=== PATIENT | male | born 1950 | race Two or more races ===

== ENCOUNTER 2022-12-21 07:09 | Inpatient (IN) | payer MEDICARE, MEDICAID ==
[2022-12-21] VITALS (7 sets, daily range): BP systolic 114–142; BP diastolic 50–65
[~2022-12-21] VITALS: Ht 185.4 cm; Wt 69.4 kg
[~2022-12-21 07:09] MED LIST: [UNRECOGNIZED DRUG - OTHER]; amlodipine; asa; flomax; lotensin; reglan
[2022-12-21 07:50] LABS: BG BASE EXCESS -2.1 mmol/L (-2.0-2.0); BG CARBOXYHEMOGLOBIN 0.6 % (0.5-1.5); BG DEOXYHEMOGLOBIN 7.2 % (0.0-5.0); BG FRACTION INSPIRED OXYGEN 36; BG HCO3 ACT 20.8 mmol/L (22.0-26.0); BG METHEMOGLOBIN 0.2 % (0.0-1.5); BG OXYGEN SATURATION 92.7 % (92.0-98.5); BG PH 7.473 (7.350-7.450); BG PO2 63.2 mmHg (75.0-100.0); BG SAMPLE SITE RIGHT RADIAL; BG TOTAL HEMOGLOBIN 9.9 g/dL (12.0-18.0); BG VENT MODE NASAL CANNULA
[2022-12-21 07:59] LABS: CHLORIDE 100 mEq/L (98-107)
[2022-12-21 08:00] LABS: HEMATOCRIT. 29.1 % (42.0-52.0); HEMOGLOBIN. 9.6 g/dL (14.0-18.0); MEAN CORPUSCULAR HEMOGLOBIN 29.8 pg (28.0-32.0); MEAN CORPUSCULAR VOLUME 90.4 fL (80.0-94.0); MEAN PLATELET VOLUME 9.1 fl (7.4-10.4); PLATELET 82 x1000/uL (130-400); RED BLOOD CELL COUNT 3.22 mill/uL (4.7-6.1)
[2022-12-21] MEDS ORDERED: ENALAPRIL 2.5MG/2ML VIAL 2ML IV ONE (09:00)
[2022-12-21] MEDS ORDERED: FUROSEMIDE 40MG/4ML VIAL IVP ONE (09:00)
[2022-12-21 09:26] LABS: PLATELET ESTIMATE DECREASED
[2022-12-21] MEDS ORDERED: ENALAPRIL 1.25MG/ML VIAL 1ML IV NR (09:30)
[2022-12-21] MEDS ORDERED: FUROSEMIDE 40MG/4ML VIAL IVP NR (09:45)
[2022-12-21] MEDS ORDERED: ONDANSETRON HCL 4MG/2ML INJ IV PRN (11:30)
[2022-12-21] MEDS ORDERED: ENOXAPARIN 40MG/0.4ML SYR SUBCUT SCH (11:30)
[2022-12-21] MEDS ORDERED: IPRATROPIUM/ALBUTEROL 0.5-3(2.5)MG/3ML NEB NEB PRN (11:30)
[2022-12-21] MEDS ORDERED: CLONIDINE 0.1MG TABLET PO PRN (11:30)
[2022-12-21] MEDS ORDERED: TRAMADOL 50MG TABLET PO PRN (11:30)
[2022-12-21] MEDS ORDERED: DOCUSATE SODIUM 100MG CAPSULE PO PRN (11:30)
[2022-12-21] MEDS ORDERED: IPRATROPIUM BROMIDE (0.02%) 0.5MG/2.5ML NEB HHN PRN (11:45)
[2022-12-21] MEDS ORDERED: NALOXONE HCL 0.4MG/ML VIAL IV PRN (11:45)
[2022-12-21] MEDS ORDERED: ALBUTEROL (0.083%) 2.5MG/3ML NEB HHN PRN (11:45)
[2022-12-21] MEDS: AMLODIPINE 10MG TABLET PO SCH (13:49)
[2022-12-21] MEDS: GUAIFENESIN 600MG ER TABLET PO SCH ×2 (13:49→21:41)
[2022-12-21] MEDS: FAMOTIDINE 20MG TABLET PO SCH (13:49)
[2022-12-21] MEDS: DEXAMETHASONE 6MG TABLET PO SCH (13:50)
[2022-12-21] MEDS: ZINC SULFATE 220 MG ( 50 ) CAPSULE PO SCH (13:51)
[2022-12-21] MEDS: ASPIRIN 325MG EC TABLET PO SCH (13:52)
[2022-12-21] MEDS: ASCORBIC ACID 500 MG TABLET PO SCH ×2 (13:52→21:41)
[2022-12-21] MEDS: ACETAMINOPHEN 325MG TABLET PO PRN (13:52)
[2022-12-21] MEDS: ENOXAPARIN 30MG/0.3ML SYR SUBCUT SCH (13:58)
[2022-12-21] MEDS: CEFTRIAXONE 1,000 MG in DEXTROSE 5% WATER 50 ML IV SCH (15:17)
[2022-12-21 15:18] LABS: FOLIC ACID (FOLATE) SERUM >20 ng/mL ng/mL (>5.38); HEPATITIS B SURFACE ANTIGEN NEGATIVE; VITAMIN B12 SERUM 332 pg/mL (211-911)
[2022-12-21] MEDS: AZITHROMYCIN 500 MG in DEXT 5% WATER 250 ML IV SCH (15:18)
[2022-12-21] MEDS ORDERED: DEXTROSE 50% WATER 50ML SYRINGE IV PRN (16:00)
[2022-12-21] MEDS: BLOOD SUGAR DIAGNOSTIC STRIP TEST SCH ×2 (17:27→21:32)
[2022-12-21] MEDS: INSULIN LISPRO 100 UNITS/ML SUBCUT SCH ×2 (17:57→21:42)
[2022-12-21 19:50] LABS: CREATINE KINASE MB FRACTION 1.5 ng/mL (0.5-3.6)
[2022-12-21 19:55] LABS: T4 FREE 1.01 ng/dL (0.76-1.46)
[2022-12-22] VITALS (10 sets, daily range): BP systolic 106–146; BP diastolic 51–62
[2022-12-22] MEDS: ALBUTEROL 6.7GM HFA INHALER ORI SCH ×4 (00:28→17:54)
[2022-12-22 03:08] LABS: CREATINE KINASE MB FRACTION 1.2 ng/mL (0.5-3.6)
[2022-12-22] MEDS: BLOOD SUGAR DIAGNOSTIC STRIP TEST SCH ×4 (05:58→20:45)
[2022-12-22] MEDS: INSULIN LISPRO 100 UNITS/ML SUBCUT SCH ×4 (05:58→20:46)
[2022-12-22 06:54] LABS: HEMATOCRIT. 26.4 % (42.0-52.0); HEMOGLOBIN. 8.8 g/dL (14.0-18.0); MEAN CORPUSCULAR HEMOGLOBIN 30.1 pg (28.0-32.0); MEAN CORPUSCULAR VOLUME 90.7 fL (80.0-94.0); PLATELET 77 x1000/uL (130-400); RED BLOOD CELL COUNT 2.92 mill/uL (4.7-6.1); RED CELL DISTRIBUTION WIDTH 16.3 % (11.6-14.6)
[2022-12-22 07:24] LABS: CHLORIDE 102 mEq/L (98-107)
[2022-12-22 08:05] LABS: PHOSPHORUS 5.8 mg/dL (2.5-4.9)
[2022-12-22] MEDS: ZINC SULFATE 220 MG ( 50 ) CAPSULE PO SCH (08:49)
[2022-12-22] MEDS: DEXAMETHASONE 6MG TABLET PO SCH (08:49)
[2022-12-22] MEDS: FAMOTIDINE 20MG TABLET PO SCH (08:49)
[2022-12-22] MEDS: ASPIRIN 325MG EC TABLET PO SCH (08:49)
[2022-12-22] MEDS: GUAIFENESIN 600MG ER TABLET PO SCH ×2 (08:50→20:44)
[2022-12-22] MEDS: ASCORBIC ACID 500 MG TABLET PO SCH ×2 (08:50→20:46)
[2022-12-22] MEDS: AMLODIPINE 10MG TABLET PO SCH (08:52)
[2022-12-22] MEDS ORDERED: CEFTRIAXONE 1 G PREMIX 50 ML IV SCH (09:00)
[2022-12-22] MEDS: CEFTRIAXONE 1,000 MG in DEXTROSE 5% WATER 50 ML IV SCH (12:02)
[2022-12-22] MEDS: ENOXAPARIN 30MG/0.3ML SYR SUBCUT SCH (12:02)
[2022-12-22 13:05] LABS: PLATELET ESTIMATE DECREASED
[2022-12-22] MEDS: AZITHROMYCIN 500 MG in DEXT 5% WATER 250 ML IV SCH (13:11)
[2022-12-22 16:50] LABS: *AMPHETAMINES SCREEN URINE NEGATIVE (NEGATIVE); *BARBITURATES SCREEN URINE NEGATIVE (NEGATIVE); *BENZODIAZEPINES SCREEN URINE NEGATIVE (NEGATIVE); *COCAINE SCREEN URINE NEGATIVE (NEGATIVE); CANNABINOID URINE SCREEN NEGATIVE (NEGATIVE); METHADONE URINE SCREEN NEGATIVE (NEGATIVE); OPIATES URINE SCREEN NEGATIVE (NEGATIVE); PHENCYCLIDINE URINE SCREEN NEGATIVE (NEGATIVE)
[2022-12-22] MEDS: EPOETIN ALFA-EPBX 4,000 UNIT/ML VIAL SUBCUT SCH (20:45)
[2022-12-23] VITALS (15 sets, daily range): BP systolic 118–155; BP diastolic 50–62
[2022-12-23] MEDS: ZOLPIDEM TARTRATE 5MG TABLET PO PRN ×2 (01:55→21:12)
[2022-12-23] MEDS: ACETAMINOPHEN 325MG TABLET PO PRN (03:53)
[2022-12-23] MEDS: BLOOD SUGAR DIAGNOSTIC STRIP TEST SCH ×4 (05:44→21:02)
[2022-12-23] MEDS: INSULIN LISPRO 100 UNITS/ML SUBCUT SCH ×4 (06:45→21:13)
[2022-12-23] MEDS: DEXAMETHASONE 6MG TABLET PO SCH (09:31)
[2022-12-23] MEDS: FAMOTIDINE 20MG TABLET PO SCH (09:32)
[2022-12-23] MEDS: ZINC SULFATE 220 MG ( 50 ) CAPSULE PO SCH (09:32)
[2022-12-23] MEDS: ASPIRIN 325MG EC TABLET PO SCH (09:33)
[2022-12-23] MEDS: GUAIFENESIN 600MG ER TABLET PO SCH ×2 (09:33→21:12)
[2022-12-23] MEDS: AMLODIPINE 10MG TABLET PO SCH (09:34)
[2022-12-23] MEDS: ASCORBIC ACID 500 MG TABLET PO SCH ×2 (09:36→21:12)
[2022-12-23] MEDS: ENOXAPARIN 30MG/0.3ML SYR SUBCUT SCH (12:00)
[2022-12-23] MEDS: CEFTRIAXONE 1,000 MG in DEXTROSE 5% WATER 50 ML IV SCH (14:37)
[2022-12-23] MEDS: AZITHROMYCIN 500 MG in DEXT 5% WATER 250 ML IV SCH (15:55)
[2022-12-23] MEDS ORDERED: THROAT LOZENGES-BENZOCAINE/MENTH/CETYLPYRD CL LOZENGES MM PRN (17:45)
[2022-12-23 18:10] LABS: BG BASE EXCESS -0.9 mmol/L (-2.0-2.0); BG CARBOXYHEMOGLOBIN 0.4 % (0.5-1.5); BG DEOXYHEMOGLOBIN 13.4 % (0.0-5.0); BG HCO3 ACT 22.2 mmol/L (22.0-26.0); BG METHEMOGLOBIN 0.3 % (0.0-1.5); BG OXYGEN SATURATION 86.5 % (92.0-98.5); BG OXYHEMOGLOBIN 85.9 % (94.0-97.0); BG PH 7.473 (7.350-7.450); BG PO2 49.6 mmHg (75.0-100.0); BG SAMPLE SITE RIGHT RADIAL; BG TOTAL HEMOGLOBIN 9.9 g/dL (12.0-18.0); BG VENT MODE ROOM AIR
[2022-12-24] VITALS (7 sets, daily range): BP systolic 123–145; BP diastolic 55–80
[2022-12-24] MEDS: ALBUTEROL 6.7GM HFA INHALER ORI SCH ×5 (00:33→23:38)
[2022-12-24] MEDS: GUAIFENESIN 200MG/10ML SUGAR FREE UDC PO PRN (00:47)
[2022-12-24] MEDS: ACETAMINOPHEN 325MG TABLET PO PRN (00:47)
[2022-12-24] MEDS: BLOOD SUGAR DIAGNOSTIC STRIP TEST SCH ×4 (06:11→20:42)
[2022-12-24] MEDS: INSULIN LISPRO 100 UNITS/ML SUBCUT SCH ×4 (06:12→20:55)
[2022-12-24 08:42] LABS: HEMATOCRIT 28.6 % (42.0-52.0); HEMOGLOBIN 9.4 g/dL (14.0-18.0); MEAN CORPUSCULAR HEMOGLOBIN 29.9 pg (28.0-32.0); MEAN CORPUSCULAR VOLUME 91.2 fL (80.0-94.0); PLATELET 62 x1000/uL (130-400); RED BLOOD CELL COUNT 3.13 mill/uL (4.7-6.1); RED CELL DISTRIBUTION WIDTH 16.7 % (11.6-14.6)
[2022-12-24 08:55] LABS: INR 1.1; PROTHROMBIN TIME 11.4 sec (9.6-11.0)
[2022-12-24] MEDS: FAMOTIDINE 20MG TABLET PO SCH (09:02)
[2022-12-24] MEDS: AMLODIPINE 10MG TABLET PO SCH (09:02)
[2022-12-24] MEDS: ASCORBIC ACID 500 MG TABLET PO SCH ×2 (09:02→20:55)
[2022-12-24] MEDS: ZINC SULFATE 220 MG ( 50 ) CAPSULE PO SCH (09:02)
[2022-12-24] MEDS: ASPIRIN 81MG EC TABLET PO SCH (09:02)
[2022-12-24] MEDS: DEXAMETHASONE 6MG TABLET PO SCH (09:02)
[2022-12-24] MEDS: GUAIFENESIN 600MG ER TABLET PO SCH ×2 (09:03→20:56)
[2022-12-24] MEDS: ENOXAPARIN 30MG/0.3ML SYR SUBCUT SCH (12:00)
[2022-12-24] MEDS: CEFTRIAXONE 1,000 MG in DEXTROSE 5% WATER 50 ML IV SCH (12:17)
[2022-12-24] MEDS: AZITHROMYCIN 500 MG in DEXT 5% WATER 250 ML IV SCH (15:00)
[2022-12-24] MEDS: ZOLPIDEM TARTRATE 5MG TABLET PO PRN (20:55)
[2022-12-24] MEDS: EPOETIN ALFA-EPBX 4,000 UNIT/ML VIAL SUBCUT SCH (20:56)
[2022-12-25] VITALS: BP 140/60
[2022-12-25 04:00] VITALS: BP 150/71
[2022-12-25] MEDS: BLOOD SUGAR DIAGNOSTIC STRIP TEST SCH ×4 (06:24→20:38)
[2022-12-25] MEDS: INSULIN LISPRO 100 UNITS/ML SUBCUT SCH ×4 (06:25→20:38)
[2022-12-25] MEDS: ALBUTEROL 6.7GM HFA INHALER ORI SCH (06:30)
[2022-12-25] MEDS: ACETAMINOPHEN 325MG TABLET PO PRN (06:31)
[2022-12-25 08:00] VITALS: BP 154/66
[2022-12-25] MEDS: ASPIRIN 81MG EC TABLET PO SCH (09:20)
[2022-12-25] MEDS: ASCORBIC ACID 500 MG TABLET PO SCH ×2 (09:20→20:37)
[2022-12-25] MEDS: ZINC SULFATE 220 MG ( 50 ) CAPSULE PO SCH (09:20)
[2022-12-25] MEDS: DEXAMETHASONE 6MG TABLET PO SCH (09:20)
[2022-12-25] MEDS: GUAIFENESIN 600MG ER TABLET PO SCH ×2 (09:20→20:37)
[2022-12-25] MEDS: AMLODIPINE 10MG TABLET PO SCH (09:21)
[2022-12-25] MEDS: FAMOTIDINE 20MG TABLET PO SCH (09:21)
[2022-12-25 12:00] VITALS: BP 142/58
[2022-12-25] MEDS: ENOXAPARIN 30MG/0.3ML SYR SUBCUT SCH (12:00)
[2022-12-25] MEDS: CEFTRIAXONE 1,000 MG in DEXTROSE 5% WATER 50 ML IV SCH (12:06)
[2022-12-25] MEDS: AZITHROMYCIN 500 MG in DEXT 5% WATER 250 ML IV SCH (13:19)
[2022-12-25 16:00] VITALS: BP 102/41
[2022-12-25 20:00] VITALS: BP 144/53
[2022-12-25] MEDS: MAGNESIUM/ALUMINUM HYDROXIDE/SIMETHICONE 30ML UDC PO PRN (20:37)
[2022-12-25] MEDS: ZOLPIDEM TARTRATE 5MG TABLET PO PRN (22:45)
[2022-12-26] VITALS (11 sets, daily range): BP systolic 109–153; BP diastolic 52–90
[2022-12-26 00:22] LABS: HEPATITIS B SURFACE ANTIGEN NEGATIVE
[2022-12-26] MEDS: ALBUTEROL 6.7GM HFA INHALER ORI SCH (00:32)
[2022-12-26] MEDS: BLOOD SUGAR DIAGNOSTIC STRIP TEST SCH ×4 (06:18→21:00)
[2022-12-26] MEDS: INSULIN LISPRO 100 UNITS/ML SUBCUT SCH ×4 (06:19→22:29)
[2022-12-26] MEDS: ASCORBIC ACID 500 MG TABLET PO SCH ×2 (09:22→22:27)
[2022-12-26] MEDS: ZINC SULFATE 220 MG ( 50 ) CAPSULE PO SCH (09:22)
[2022-12-26] MEDS: FAMOTIDINE 20MG TABLET PO SCH (09:22)
[2022-12-26] MEDS: ASPIRIN 81MG EC TABLET PO SCH (09:22)
[2022-12-26] MEDS: GUAIFENESIN 600MG ER TABLET PO SCH ×2 (09:22→22:27)
[2022-12-26] MEDS: DEXAMETHASONE 6MG TABLET PO SCH (09:23)
[2022-12-26] MEDS: AMLODIPINE 10MG TABLET PO SCH (09:23)
[2022-12-26] MEDS: METOPROLOL TARTRATE 25MG TABLET PO SCH ×2 (14:06→22:27)
[2022-12-26] MEDS: CEFTRIAXONE 1,000 MG in DEXTROSE 5% WATER 50 ML IV SCH (14:06)
[2022-12-26] MEDS: ENOXAPARIN 30MG/0.3ML SYR SUBCUT SCH (14:07)
[2022-12-27] VITALS: BP 150/62
[2022-12-27 04:00] VITALS: BP 158/70
[2022-12-27] MEDS: BLOOD SUGAR DIAGNOSTIC STRIP TEST SCH ×4 (06:46→20:57)
[2022-12-27] MEDS: INSULIN LISPRO 100 UNITS/ML SUBCUT SCH ×4 (06:46→21:20)
[2022-12-27 08:00] VITALS: BP 142/54
[2022-12-27] MEDS: ZINC SULFATE 220 MG ( 50 ) CAPSULE PO SCH (09:30)
[2022-12-27] MEDS: GUAIFENESIN 600MG ER TABLET PO SCH ×2 (09:30→21:21)
[2022-12-27] MEDS: ASPIRIN 81MG EC TABLET PO SCH (09:31)
[2022-12-27] MEDS: FAMOTIDINE 20MG TABLET PO SCH (09:31)
[2022-12-27] MEDS: AMLODIPINE 10MG TABLET PO SCH (09:31)
[2022-12-27] MEDS: METOPROLOL TARTRATE 25MG TABLET PO SCH ×2 (09:31→20:56)
[2022-12-27] MEDS: ASCORBIC ACID 500 MG TABLET PO SCH ×2 (09:31→21:00)
[2022-12-27] MEDS: DEXAMETHASONE 6MG TABLET PO SCH (09:31)
[2022-12-27 12:00] VITALS: BP 157/61
[2022-12-27] MEDS: ENOXAPARIN 30MG/0.3ML SYR SUBCUT SCH (12:19)
[2022-12-27] MEDS: FUROSEMIDE 40MG/4ML VIAL IVP SCH (13:57)
[2022-12-27 16:00] VITALS: BP 139/60
[2022-12-27 20:00] VITALS: BP 135/46
[2022-12-27] MEDS: EPOETIN ALFA-EPBX 4,000 UNIT/ML VIAL SUBCUT SCH (21:19)
[2022-12-27] MEDS: ZOLPIDEM TARTRATE 5MG TABLET PO PRN (21:21)
[2022-12-28] VITALS (14 sets, daily range): BP systolic 115–158; BP diastolic 55–89
[2022-12-28] MEDS: BLOOD SUGAR DIAGNOSTIC STRIP TEST SCH ×4 (05:41→21:00)
[2022-12-28] MEDS: INSULIN LISPRO 100 UNITS/ML SUBCUT SCH ×4 (06:15→22:00)
[2022-12-28 06:59] LABS: HEMATOCRIT. 30.6 % (42.0-52.0); HEMOGLOBIN. 9.8 g/dL (14.0-18.0); MEAN CORPUSCULAR HEMOGLOBIN 28.9 pg (28.0-32.0); MEAN PLATELET VOLUME 10.1 fl (7.4-10.4); PLATELET 71 x1000/uL (130-400); RED CELL DISTRIBUTION WIDTH 16.7 % (11.6-14.6)
[2022-12-28] MEDS: ASCORBIC ACID 500 MG TABLET PO SCH ×2 (09:37→21:59)
[2022-12-28] MEDS: ZINC SULFATE 220 MG ( 50 ) CAPSULE PO SCH (09:37)
[2022-12-28] MEDS: GUAIFENESIN 600MG ER TABLET PO SCH ×2 (09:37→21:59)
[2022-12-28] MEDS: ASPIRIN 81MG EC TABLET PO SCH (09:38)
[2022-12-28] MEDS: METOPROLOL TARTRATE 25MG TABLET PO SCH ×2 (09:38→21:59)
[2022-12-28] MEDS: DEXAMETHASONE 6MG TABLET PO SCH (09:38)
[2022-12-28] MEDS: FUROSEMIDE 40MG/4ML VIAL IVP SCH (09:38)
[2022-12-28] MEDS: AMLODIPINE 10MG TABLET PO SCH (09:38)
[2022-12-28] MEDS: FAMOTIDINE 20MG TABLET PO SCH (09:52)
[2022-12-28 11:01] LABS: PLATELET ESTIMATE DECREASED
[2022-12-28] MEDS: ENOXAPARIN 30MG/0.3ML SYR SUBCUT SCH (12:00)
[2022-12-28] MEDS: CYANOCOBALAMIN 1000MCG/ML VIAL IM SCH (15:59)
[2022-12-28] MEDS: METHYLPREDNISOLONE SOD SUCC 125 MG/2 ML VIAL IV SCH ×2 (15:59→22:01)
[2022-12-28] MEDS ORDERED: ALBUTEROL 6.7GM HFA INHALER ORI PRN (16:15)
[2022-12-29] VITALS: BP 126/49
[2022-12-29 04:00] VITALS: BP 132/60
[2022-12-29 06:27] LABS: HEPATITIS B SURFACE ANTIGEN NEGATIVE
[2022-12-29] MEDS: BLOOD SUGAR DIAGNOSTIC STRIP TEST SCH ×4 (06:34→21:49)
[2022-12-29] MEDS: INSULIN LISPRO 100 UNITS/ML SUBCUT SCH ×4 (06:34→21:49)
[2022-12-29] MEDS: METHYLPREDNISOLONE SOD SUCC 125 MG/2 ML VIAL IV SCH ×3 (06:35→21:48)
[2022-12-29 08:00] VITALS: BP 119/53
[2022-12-29] MEDS: AMLODIPINE 10MG TABLET PO SCH (09:00)
[2022-12-29] MEDS: METOPROLOL TARTRATE 25MG TABLET PO SCH ×3 (09:00→21:48)
[2022-12-29] MEDS: ZINC SULFATE 220 MG ( 50 ) CAPSULE PO SCH (09:26)
[2022-12-29] MEDS: FUROSEMIDE 40MG/4ML VIAL IVP SCH (09:26)
[2022-12-29] MEDS: ASCORBIC ACID 500 MG TABLET PO SCH ×2 (09:26→21:49)
[2022-12-29] MEDS: GUAIFENESIN 600MG ER TABLET PO SCH ×2 (09:26→21:48)
[2022-12-29] MEDS: FAMOTIDINE 20MG TABLET PO SCH (09:26)
[2022-12-29] MEDS: ASPIRIN 81MG EC TABLET PO SCH (09:27)
[2022-12-29] MEDS: CYANOCOBALAMIN 1000MCG/ML VIAL IM SCH (09:27)
[2022-12-29 12:00] VITALS: BP 126/56
[2022-12-29] MEDS: ENOXAPARIN 30MG/0.3ML SYR SUBCUT SCH (13:14)
[2022-12-29 16:00] VITALS: BP 133/53
[2022-12-29 20:00] VITALS: BP 139/43
[2022-12-29] MEDS: ZOLPIDEM TARTRATE 5MG TABLET PO PRN (23:30)
[2022-12-30] VITALS: BP 152/53
[2022-12-30 04:00] VITALS: BP 133/53
[2022-12-30] MEDS: METHYLPREDNISOLONE SOD SUCC 125 MG/2 ML VIAL IV SCH ×3 (06:50→21:36)
[2022-12-30] MEDS: BLOOD SUGAR DIAGNOSTIC STRIP TEST SCH ×4 (06:50→21:24)
[2022-12-30 06:51] LABS: HEMATOCRIT. 29.9 % (42.0-52.0); HEMOGLOBIN. 9.7 g/dL (14.0-18.0); MEAN CORPUSCULAR HEMOGLOBIN 29.2 pg (28.0-32.0); MEAN CORPUSCULAR VOLUME 90.1 fL (80.0-94.0); MEAN PLATELET VOLUME 10.6 fl (7.4-10.4); PLATELET 91 x1000/uL (130-400); RED BLOOD CELL COUNT 3.32 mill/uL (4.7-6.1); RED CELL DISTRIBUTION WIDTH 16.1 % (11.6-14.6)
[2022-12-30] MEDS: INSULIN LISPRO 100 UNITS/ML SUBCUT SCH ×4 (06:51→21:48)
[2022-12-30 08:00] VITALS: BP 117/54
[2022-12-30 09:57] LABS: PLATELET ESTIMATE DECREASED
[2022-12-30] MEDS: FAMOTIDINE 20MG TABLET PO SCH (10:16)
[2022-12-30] MEDS: FUROSEMIDE 40MG/4ML VIAL IVP SCH (10:16)
[2022-12-30] MEDS: CYANOCOBALAMIN 1000MCG/ML VIAL IM SCH (10:16)
[2022-12-30] MEDS: AMLODIPINE 10MG TABLET PO SCH (10:17)
[2022-12-30] MEDS: ASCORBIC ACID 500 MG TABLET PO SCH ×2 (10:17→21:36)
[2022-12-30] MEDS: ZINC SULFATE 220 MG ( 50 ) CAPSULE PO SCH (10:17)
[2022-12-30] MEDS: GUAIFENESIN 600MG ER TABLET PO SCH ×2 (10:17→21:36)
[2022-12-30] MEDS: ASPIRIN 81MG EC TABLET PO SCH (10:17)
[2022-12-30] MEDS: METOPROLOL TARTRATE 25MG TABLET PO SCH ×2 (10:19→21:36)
[2022-12-30 12:00] VITALS: BP 131/48
[2022-12-30] MEDS: ENOXAPARIN 30MG/0.3ML SYR SUBCUT SCH (12:00)
[2022-12-30 12:32] LABS: BG BASE EXCESS -7.2 mmol/L (-2.0-2.0); BG CARBOXYHEMOGLOBIN 0.3 % (0.5-1.5); BG DEOXYHEMOGLOBIN 1.6 % (0.0-5.0); BG HCO3 ACT 17.9 mmol/L (22.0-26.0); BG METHEMOGLOBIN 0.2 % (0.0-1.5); BG OXYGEN SATURATION 98.4 % (92.0-98.5); BG OXYHEMOGLOBIN 97.9 % (94.0-97.0); BG PCO2 34.3 mmHg (35.0-45.0); BG PH 7.335 (7.350-7.450); BG PO2 158.8 mmHg (75.0-100.0); BG SAMPLE SITE RIGHT RADIAL; BG TOTAL HEMOGLOBIN 10.5 g/dL (12.0-18.0); BG VENT MODE MASK - NRB
[2022-12-30 16:00] VITALS: BP 134/44
[2022-12-30 20:00] VITALS: BP 122/61
[2022-12-31] VITALS (15 sets, daily range): BP systolic 114–147; BP diastolic 46–66
[2022-12-31] MEDS: ZOLPIDEM TARTRATE 5MG TABLET PO PRN (00:20)
[2022-12-31] MEDS: BLOOD SUGAR DIAGNOSTIC STRIP TEST SCH ×4 (06:01→21:00)
[2022-12-31] MEDS: METHYLPREDNISOLONE SOD SUCC 125 MG/2 ML VIAL IV SCH ×3 (06:08→22:31)
[2022-12-31] MEDS: INSULIN LISPRO 100 UNITS/ML SUBCUT SCH ×4 (06:09→22:30)
[2022-12-31] MEDS: FAMOTIDINE 20MG TABLET PO SCH (10:04)
[2022-12-31] MEDS: FUROSEMIDE 40MG/4ML VIAL IVP SCH (10:04)
[2022-12-31] MEDS: ZINC SULFATE 220 MG ( 50 ) CAPSULE PO SCH (10:04)
[2022-12-31] MEDS: ASCORBIC ACID 500 MG TABLET PO SCH ×2 (10:05→22:31)
[2022-12-31] MEDS: METOPROLOL TARTRATE 25MG TABLET PO SCH ×2 (10:05→22:32)
[2022-12-31] MEDS: GUAIFENESIN 600MG ER TABLET PO SCH ×2 (10:05→22:32)
[2022-12-31] MEDS: AMLODIPINE 10MG TABLET PO SCH (10:05)
[2022-12-31] MEDS: ASPIRIN 81MG EC TABLET PO SCH (10:05)
[2022-12-31] MEDS: CYANOCOBALAMIN 1000MCG/ML VIAL IM SCH (10:05)
[2022-12-31] MEDS: ENOXAPARIN 30MG/0.3ML SYR SUBCUT SCH (13:50)
[2022-12-31] MEDS: ACETAMINOPHEN 325MG TABLET PO PRN ×3 (15:08→22:33)
[2022-12-31] MEDS ORDERED: LEVOFLOXACIN 500MG PREMIX 100 ML IV NR (18:00)
[2023-01-01] VITALS: BP 117/51
[2023-01-01] MEDS: ZOLPIDEM TARTRATE 5MG TABLET PO PRN ×2 (00:10→21:49)
[2023-01-01 04:00] VITALS: BP 121/57
[2023-01-01 06:05] LABS: HEMATOCRIT. 29.5 % (42.0-52.0); HEMOGLOBIN. 9.6 g/dL (14.0-18.0); MEAN CORPUSCULAR HEMOGLOBIN 29.3 pg (28.0-32.0); MEAN CORPUSCULAR VOLUME 90.6 fL (80.0-94.0); MEAN PLATELET VOLUME 9.7 fl (7.4-10.4); PLATELET 87 x1000/uL (130-400); RED BLOOD CELL COUNT 3.26 mill/uL (4.7-6.1); RED CELL DISTRIBUTION WIDTH 16.3 % (11.6-14.6)
[2023-01-01] MEDS: BLOOD SUGAR DIAGNOSTIC STRIP TEST SCH ×4 (06:29→21:25)
[2023-01-01] MEDS: INSULIN LISPRO 100 UNITS/ML SUBCUT SCH ×4 (06:36→21:51)
[2023-01-01] MEDS: METHYLPREDNISOLONE SOD SUCC 125 MG/2 ML VIAL IV SCH ×3 (06:37→21:40)
[2023-01-01 07:37] LABS: PLATELET ESTIMATE DECREASED
[2023-01-01 08:00] VITALS: BP 126/55
[2023-01-01] MEDS: GUAIFENESIN 600MG ER TABLET PO SCH ×2 (08:53→21:40)
[2023-01-01] MEDS: FUROSEMIDE 40MG/4ML VIAL IVP SCH (08:53)
[2023-01-01] MEDS: CYANOCOBALAMIN 1000MCG/ML VIAL IM SCH (08:53)
[2023-01-01] MEDS: ASPIRIN 81MG EC TABLET PO SCH (08:53)
[2023-01-01] MEDS: FAMOTIDINE 20MG TABLET PO SCH (08:54)
[2023-01-01] MEDS: ASCORBIC ACID 500 MG TABLET PO SCH ×2 (08:54→21:40)
[2023-01-01] MEDS: AMLODIPINE 10MG TABLET PO SCH (08:54)
[2023-01-01] MEDS: METOPROLOL TARTRATE 25MG TABLET PO SCH ×2 (08:54→21:40)
[2023-01-01] MEDS: ZINC SULFATE 220 MG ( 50 ) CAPSULE PO SCH (08:55)
[2023-01-01 12:00] VITALS: BP 127/58
[2023-01-01] MEDS: ENOXAPARIN 30MG/0.3ML SYR SUBCUT SCH (12:03)
[2023-01-01 16:00] VITALS: BP 127/70
[2023-01-01 20:00] VITALS: BP 131/60
[2023-01-02] VITALS: BP 153/65
[2023-01-02 01:08] LABS: HEPATITIS B SURFACE ANTIGEN NEGATIVE
[2023-01-02 04:00] VITALS: BP 146/61
[2023-01-02] MEDS: BLOOD SUGAR DIAGNOSTIC STRIP TEST SCH ×4 (05:44→20:09)
[2023-01-02 06:26] LABS: HEMATOCRIT. 32.6 % (42.0-52.0); HEMOGLOBIN. 10.5 g/dL (14.0-18.0); MEAN CORPUSCULAR HEMOGLOBIN 29.8 pg (28.0-32.0); MEAN CORPUSCULAR VOLUME 92.8 fL (80.0-94.0); MEAN PLATELET VOLUME 9.9 fl (7.4-10.4); PLATELET 108 x1000/uL (130-400); RED BLOOD CELL COUNT 3.51 mill/uL (4.7-6.1); RED CELL DISTRIBUTION WIDTH 16.8 % (11.6-14.6)
[2023-01-02] MEDS: METHYLPREDNISOLONE SOD SUCC 125 MG/2 ML VIAL IV SCH ×3 (06:36→21:17)
[2023-01-02 08:00] VITALS: BP 131/57
[2023-01-02] MEDS: FUROSEMIDE 40MG/4ML VIAL IVP SCH (08:37)
[2023-01-02] MEDS: INSULIN LISPRO 100 UNITS/ML SUBCUT SCH ×4 (08:37→21:27)
[2023-01-02] MEDS: FAMOTIDINE 20MG TABLET PO SCH (08:38)
[2023-01-02] MEDS: ASCORBIC ACID 500 MG TABLET PO SCH ×2 (08:38→21:17)
[2023-01-02] MEDS: GUAIFENESIN 600MG ER TABLET PO SCH ×2 (08:38→21:17)
[2023-01-02] MEDS: ASPIRIN 81MG EC TABLET PO SCH (08:38)
[2023-01-02] MEDS: ZINC SULFATE 220 MG ( 50 ) CAPSULE PO SCH (08:39)
[2023-01-02] MEDS: AMLODIPINE 10MG TABLET PO SCH (09:30)
[2023-01-02] MEDS: METOPROLOL TARTRATE 25MG TABLET PO SCH ×2 (09:31→21:17)
[2023-01-02 11:27] LABS: PLATELET ESTIMATE DECREASED
[2023-01-02] MEDS: ENOXAPARIN 30MG/0.3ML SYR SUBCUT SCH (11:53)
[2023-01-02 12:10] VITALS: BP 132/76
[2023-01-02 16:00] VITALS: BP 125/62
[2023-01-02] MEDS: LEVOFLOXACIN 250MG PREMIX 50 ML IV SCH (17:02)
[2023-01-02 20:00] VITALS: BP 130/50
[2023-01-02] MEDS: ZOLPIDEM TARTRATE 5MG TABLET PO PRN (21:17)
[2023-01-03] VITALS (16 sets, daily range): BP systolic 113–136; BP diastolic 54–76
[2023-01-03] MEDS: BLOOD SUGAR DIAGNOSTIC STRIP TEST SCH ×4 (05:59→21:00)
[2023-01-03] MEDS: METHYLPREDNISOLONE SOD SUCC 125 MG/2 ML VIAL IV SCH ×3 (05:59→21:53)
[2023-01-03] MEDS: GUAIFENESIN 600MG ER TABLET PO SCH ×2 (08:58→21:53)
[2023-01-03] MEDS: FUROSEMIDE 40MG/4ML VIAL IVP SCH (08:58)
[2023-01-03] MEDS: AMLODIPINE 10MG TABLET PO SCH (08:58)
[2023-01-03] MEDS: ZINC SULFATE 220 MG ( 50 ) CAPSULE PO SCH (08:58)
[2023-01-03] MEDS: FAMOTIDINE 20MG TABLET PO SCH (08:58)
[2023-01-03] MEDS: METOPROLOL TARTRATE 25MG TABLET PO SCH ×2 (08:58→21:53)
[2023-01-03] MEDS: ASCORBIC ACID 500 MG TABLET PO SCH ×2 (08:58→21:53)
[2023-01-03] MEDS: ASPIRIN 81MG EC TABLET PO SCH (08:58)
[2023-01-03] MEDS: INSULIN LISPRO 100 UNITS/ML SUBCUT SCH ×4 (09:01→21:00)
[2023-01-03] MEDS: ENOXAPARIN 30MG/0.3ML SYR SUBCUT SCH (13:38)
[2023-01-03 15:38] LABS: BG BASE EXCESS -6.6 mmol/L (-2.0-2.0); BG CARBOXYHEMOGLOBIN 0.5 % (0.5-1.5); BG DEOXYHEMOGLOBIN 9.2 % (0.0-5.0); BG FRACTION INSPIRED OXYGEN 40; BG HCO3 ACT 17.2 mmol/L (22.0-26.0); BG METHEMOGLOBIN 0.2 % (0.0-1.5); BG OXYGEN SATURATION 90.7 % (92.0-98.5); BG OXYHEMOGLOBIN 90.1 % (94.0-97.0); BG PH 7.392 (7.350-7.450); BG PO2 63.4 mmHg (75.0-100.0); BG SAMPLE SITE RIGHT RADIAL; BG TOTAL HEMOGLOBIN 10.6 g/dL (12.0-18.0); BG VENT MODE NASAL CANNULA
[2023-01-03] MEDS: ZOLPIDEM TARTRATE 5MG TABLET PO PRN (23:22)
[2023-01-04] VITALS: BP_SYST 127; BP_SYST 141; BP_SYST 146; BP_DIAS 61; BP_DIAS 62
[2023-01-04 04:00] VITALS: BP 126/50
[2023-01-04] MEDS: METHYLPREDNISOLONE SOD SUCC 125 MG/2 ML VIAL IV SCH (06:00)
[2023-01-04] MEDS: INSULIN LISPRO 100 UNITS/ML SUBCUT SCH ×4 (06:19→21:00)
[2023-01-04] MEDS: BLOOD SUGAR DIAGNOSTIC STRIP TEST SCH ×4 (06:19→21:10)
[2023-01-04 08:00] VITALS: BP 145/65
[2023-01-04] MEDS: AMLODIPINE 10MG TABLET PO SCH (09:47)
[2023-01-04] MEDS: ASCORBIC ACID 500 MG TABLET PO SCH ×2 (09:47→20:56)
[2023-01-04] MEDS: GUAIFENESIN 600MG ER TABLET PO SCH ×2 (09:48→20:56)
[2023-01-04] MEDS: FAMOTIDINE 20MG TABLET PO SCH (09:48)
[2023-01-04] MEDS: ZINC SULFATE 220 MG ( 50 ) CAPSULE PO SCH (09:48)
[2023-01-04] MEDS: METOPROLOL TARTRATE 25MG TABLET PO SCH ×2 (09:48→20:57)
[2023-01-04] MEDS: FUROSEMIDE 40MG/4ML VIAL IVP SCH (09:49)
[2023-01-04] MEDS: ASPIRIN 81MG EC TABLET PO SCH (09:49)
[2023-01-04 12:00] VITALS: BP 127/62
[2023-01-04] MEDS: ENOXAPARIN 30MG/0.3ML SYR SUBCUT SCH (12:00)
[2023-01-04] MEDS: METHYLPREDNISOLONE SOD SUCC 40 MG/ML VIAL IV SCH ×2 (14:36→21:10)
[2023-01-04 16:00] VITALS: BP 138/66
[2023-01-04] MEDS: LEVOFLOXACIN 250MG PREMIX 50 ML IV SCH (18:12)
[2023-01-04 20:00] VITALS: BP 136/67
[2023-01-05] VITALS (10 sets, daily range): BP systolic 106–149; BP diastolic 38–70
[2023-01-05] MEDS: ZOLPIDEM TARTRATE 5MG TABLET PO PRN (00:41)
[2023-01-05] MEDS: MAGNESIUM/ALUMINUM HYDROXIDE/SIMETHICONE 30ML UDC PO PRN (00:46)
[2023-01-05] MEDS: ACETAMINOPHEN 325MG TABLET PO PRN ×2 (00:47→20:17)
[2023-01-05] MEDS: BLOOD SUGAR DIAGNOSTIC STRIP TEST SCH ×4 (05:54→21:51)
[2023-01-05] MEDS: INSULIN LISPRO 100 UNITS/ML SUBCUT SCH ×4 (05:59→21:00)
[2023-01-05] MEDS: GUAIFENESIN 200MG/10ML SUGAR FREE UDC PO PRN (05:59)
[2023-01-05] MEDS: METHYLPREDNISOLONE SOD SUCC 40 MG/ML VIAL IV SCH ×3 (05:59→21:45)
[2023-01-05] MEDS: AMLODIPINE 10MG TABLET PO SCH (09:00)
[2023-01-05] MEDS: METOPROLOL TARTRATE 25MG TABLET PO SCH ×2 (09:00→21:50)
[2023-01-05] MEDS: FUROSEMIDE 40MG/4ML VIAL IVP SCH (09:00)
[2023-01-05] MEDS: ENOXAPARIN 30MG/0.3ML SYR SUBCUT SCH (09:00)
[2023-01-05] MEDS: FAMOTIDINE 20MG TABLET PO SCH (09:12)
[2023-01-05] MEDS: GUAIFENESIN 600MG ER TABLET PO SCH ×2 (09:12→21:49)
[2023-01-05] MEDS: ASCORBIC ACID 500 MG TABLET PO SCH ×2 (09:12→21:51)
[2023-01-05] MEDS: ZINC SULFATE 220 MG ( 50 ) CAPSULE PO SCH (09:14)
[2023-01-05] MEDS: ASPIRIN 81MG EC TABLET PO SCH (13:47)
[2023-01-06] VITALS: BP 111/53
[2023-01-06] MEDS: ZOLPIDEM TARTRATE 5MG TABLET PO PRN (00:55)
[2023-01-06 04:00] VITALS: BP 137/56
[2023-01-06] MEDS: BLOOD SUGAR DIAGNOSTIC STRIP TEST SCH ×2 (06:45→11:43)
[2023-01-06] MEDS: METHYLPREDNISOLONE SOD SUCC 40 MG/ML VIAL IV SCH ×2 (06:45→13:47)
[2023-01-06] MEDS: INSULIN LISPRO 100 UNITS/ML SUBCUT SCH ×2 (06:46→12:31)
[2023-01-06 08:00] VITALS: BP 131/60
[2023-01-06] MEDS: GUAIFENESIN 200MG/10ML SUGAR FREE UDC PO PRN (09:25)
[2023-01-06] MEDS: ZINC SULFATE 220 MG ( 50 ) CAPSULE PO SCH (09:26)
[2023-01-06] MEDS: FAMOTIDINE 20MG TABLET PO SCH (09:26)
[2023-01-06] MEDS: ASCORBIC ACID 500 MG TABLET PO SCH (09:26)
[2023-01-06] MEDS: ASPIRIN 81MG EC TABLET PO SCH (09:28)
[2023-01-06] MEDS: METOPROLOL TARTRATE 25MG TABLET PO SCH (09:28)
[2023-01-06] MEDS: AMLODIPINE 10MG TABLET PO SCH (09:29)
[2023-01-06] MEDS: GUAIFENESIN 600MG ER TABLET PO SCH (09:29)
[2023-01-06] MEDS: FUROSEMIDE 40MG/4ML VIAL IVP SCH (09:29)
[2023-01-06] MEDS: ENOXAPARIN 30MG/0.3ML SYR SUBCUT SCH (09:30)
[2023-01-06 12:00] VITALS: BP 122/55
[2023-01-06 12:35] VITALS: BP 122/55
== END 2023-01-06 15:38 | DRG 871 ==
LOC: ER 07:09 → MICUSO 09:50 → EDBEDREQSVC 09:54 → EDBEDREQTM 09:54 → EDBEDREQ 09:54 → 7EST 11:27
PROVIDERS: ADMIT Internal Medicine; ATTEND Internal Medicine
PROC: 5A1D70Z Performance of Urinary Filtration, Intermittent, Less than 6 Hours Per Day (ICD-10-PCS; 2022-12-21)
PROC: 5A1D70Z Performance of Urinary Filtration, Intermittent, Less than 6 Hours Per Day (ICD-10-PCS; 2022-12-22)
PROC: 5A1D70Z Performance of Urinary Filtration, Intermittent, Less than 6 Hours Per Day (ICD-10-PCS; 2022-12-25)
PROC: 5A1D70Z Performance of Urinary Filtration, Intermittent, Less than 6 Hours Per Day (ICD-10-PCS; 2022-12-27)
PROC: 5A09357 Assistance with Respiratory Ventilation, Less than 24 Consecutive Hours, Continuous Positive Airway Pressure (ICD-10-PCS; principal; 2022-12-28)
PROC: 5A09357 Assistance with Respiratory Ventilation, Less than 24 Consecutive Hours, Continuous Positive Airway Pressure (ICD-10-PCS; 2022-12-28)
PROC: 5A1D70Z Performance of Urinary Filtration, Intermittent, Less than 6 Hours Per Day (ICD-10-PCS; 2022-12-30)
PROC: 5A1D70Z Performance of Urinary Filtration, Intermittent, Less than 6 Hours Per Day (ICD-10-PCS; 2023-01-01)
PROC: 5A1D70Z Performance of Urinary Filtration, Intermittent, Less than 6 Hours Per Day (ICD-10-PCS; 2023-01-02)
PROC: 5A1D70Z Performance of Urinary Filtration, Intermittent, Less than 6 Hours Per Day (ICD-10-PCS; 2023-01-04)
DX: A41.89 Other specified sepsis (principal); I21.4 Non-ST elevation (NSTEMI) myocardial infarction; J96.01 Acute respiratory failure with hypoxia; N18.6 End stage renal disease; U07.1 COVID-19; J12.82 Pneumonia due to coronavirus disease 2019; I50.31 Acute diastolic (congestive) heart failure; I13.2 Hypertensive heart and chronic kidney disease with heart failure and with stage 5 chronic kidney disease, or end stage renal disease; N17.9 Acute kidney failure, unspecified; Z94.0 Kidney transplant status; J81.1 Chronic pulmonary edema; D63.8 Anemia in other chronic diseases classified elsewhere; D69.6 Thrombocytopenia, unspecified; E11.22 Type 2 diabetes mellitus with diabetic chronic kidney disease; E78.00 Pure hypercholesterolemia, unspecified; I16.0 Hypertensive urgency; I25.10 Atherosclerotic heart disease of native coronary artery without angina pectoris; Z87.891 Personal history of nicotine dependence; Z95.5 Presence of coronary angioplasty implant and graft; Z99.2 Dependence on renal dialysis; Z79.4 Long term (current) use of insulin; Z82.49 Family history of ischemic heart disease and other diseases of the circulatory system; J84.10 Pulmonary fibrosis, unspecified; U09.9 Post COVID-19 condition, unspecified
CPT/HCPCS: 36415; 36600; 71045; 78580; 80048; 80053; 80061; 80305; 82375; 82550; 82553; 82607; 82746; 82805; 82962; 83036; 83540; 83550; 83605; 83735; 83880; 84100; 84145; 84439; 84443; 84484; 85025; 85027; 86705; 86709; 86803; 87340; 87426; 87804; 90935; 93005; 93970; 94660; 97110; 97116; 97162; 97166; 97530; 97535; 99285; A6261; C9803; J0456; J0696; J0885; J1650; J1815; J1940; J1956; J2405; J2920; J2930; J3420; J3490; J7060

== ENCOUNTER 2023-01-08 16:40 | Inpatient (IN) | payer MEDICARE, MEDICAID ==
[2023-01-08] VITALS (12 sets, daily range): BP systolic 117–185; BP diastolic 49–106
[~2023-01-08] VITALS: Ht 185.4 cm; Wt 62.6 kg
[2023-01-08] MEDS ORDERED: IPRATROPIUM/ALBUTEROL 0.5-3(2.5)MG/3ML NEB HHN PRN (16:45)
[2023-01-08] MEDS ORDERED: CLONIDINE 0.1MG TABLET PO PRN (17:45)
[2023-01-08] MEDS ORDERED: DEXTROSE 50% WATER 50ML SYRINGE IV PRN (17:45)
[2023-01-08] MEDS ORDERED: GUAIFENESIN 200MG/10ML SUGAR FREE UDC PO PRN (17:45)
[2023-01-08] MEDS ORDERED: ACETAMINOPHEN 325MG TABLET PO PRN (17:45)
[2023-01-08] MEDS ORDERED: MAGNESIUM/ALUMINUM HYDROXIDE/SIMETHICONE 30ML UDC PO PRN (17:45)
[2023-01-08] MEDS ORDERED: DOCUSATE SODIUM 100MG CAPSULE PO PRN (17:45)
[2023-01-08] MEDS ORDERED: ZOLPIDEM TARTRATE 5MG TABLET PO PRN (17:45)
[2023-01-08] MEDS ORDERED: ONDANSETRON HCL 4MG/2ML INJ IV PRN (17:45)
[2023-01-08] MEDS: IPRATROPIUM/ALBUTEROL 0.5-3(2.5)MG/3ML NEB HHN SCH ×2 (18:02→20:30)
[2023-01-08] MEDS: BLOOD SUGAR DIAGNOSTIC STRIP TEST SCH (21:00)
[2023-01-08] MEDS: METOPROLOL TARTRATE 25MG TABLET PO SCH ×2 (21:00→22:32)
[2023-01-08] MEDS: INSULIN LISPRO 100 UNITS/ML SUBCUT SCH (21:00)
[2023-01-08] MEDS: GUAIFENESIN 600MG ER TABLET PO SCH ×2 (21:00→22:32)
[2023-01-09] VITALS (27 sets, daily range): BP systolic 62–178; BP diastolic 38–118
[2023-01-09] MEDS ORDERED: HYDRALAZINE 20MG/ML VIAL IV PRN (00:15)
[2023-01-09] MEDS: IPRATROPIUM/ALBUTEROL 0.5-3(2.5)MG/3ML NEB HHN SCH ×3 (00:30→08:14)
[2023-01-09] MEDS: METHYLPREDNISOLONE SOD SUCC 40 MG/ML VIAL IV SCH ×2 (00:48→09:31)
[2023-01-09 05:56] LABS: HEMATOCRIT. 29.1 % (42.0-52.0); HEMOGLOBIN. 9.2 g/dL (14.0-18.0); MEAN CORPUSCULAR VOLUME 91.5 fL (80.0-94.0); MEAN PLATELET VOLUME 10.4 fl (7.4-10.4); RED BLOOD CELL COUNT 3.18 mill/uL (4.7-6.1); RED CELL DISTRIBUTION WIDTH 17.6 % (11.6-14.6)
[2023-01-09 06:04] LABS: PLATELET 49 x1000/uL (130-400)
[2023-01-09] MEDS: BLOOD SUGAR DIAGNOSTIC STRIP TEST SCH (07:50)
[2023-01-09] MEDS: INSULIN LISPRO 100 UNITS/ML SUBCUT SCH (08:20)
[2023-01-09 08:51] LABS: BG BASE EXCESS -9.2 mmol/L (-2.0-2.0); BG CARBOXYHEMOGLOBIN 0.2 % (0.5-1.5); BG DEOXYHEMOGLOBIN 11.6 % (0.0-5.0); BG FRACTION INSPIRED OXYGEN 60; BG HCO3 ACT 17.7 mmol/L (22.0-26.0); BG METHEMOGLOBIN 0.3 % (0.0-1.5); BG OXYGEN SATURATION 88.3 % (92.0-98.5); BG OXYHEMOGLOBIN 87.9 % (94.0-97.0); BG PCO2 42.6 mmHg (35.0-45.0); BG PH 7.236 (7.350-7.450); BG PO2 69.2 mmHg (75.0-100.0); BG SAMPLE SITE RIGHT RADIAL; BG TOTAL HEMOGLOBIN 9.5 g/dL (12.0-18.0); BG VENT MODE MASK - BIPAP
[2023-01-09] MEDS ORDERED: ASPIRIN 81MG TABLET PO SCH (09:00)
[2023-01-09] MEDS ORDERED: ASCORBIC ACID 500 MG TABLET PO SCH (09:00)
[2023-01-09] MEDS ORDERED: FUROSEMIDE 100MG/10ML VIAL IVP SCH (09:00)
[2023-01-09] MEDS ORDERED: ENOXAPARIN 30MG/0.3ML SYR SUBCUT SCH (09:00)
[2023-01-09] MEDS: METOPROLOL TARTRATE 25MG TABLET PO SCH (09:00)
[2023-01-09] MEDS ORDERED: FAMOTIDINE 20MG TABLET PO SCH (09:00)
[2023-01-09] MEDS ORDERED: ZINC SULFATE 220 MG ( 50 ) CAPSULE PO SCH (09:00)
[2023-01-09] MEDS ORDERED: AMLODIPINE 10MG TABLET PO SCH (09:00)
[2023-01-09] MEDS: GUAIFENESIN 600MG ER TABLET PO SCH (09:00)
[2023-01-09 09:01] LABS: PLATELET ESTIMATE MARKEDLY DECREASED
[2023-01-09 09:05] LABS: CLARITY URINE TURBID (CLEAR); COLOR URINE DARK YELLOW (YELLOW); KETONES URINE TRACE (NEGATIVE); LEUKOCYTE ESTERASE URINE 1+ (NEGATIVE); NITRITE URINE NEGATIVE (NEGATIVE); OCCULT BLOOD URINE 2+ (NEGATIVE); PROTEIN URINE 2+ (NEGATIVE); SPECIFIC GRAVITY URINE 1.016 (1.005-1.030)
[2023-01-09] MEDS ORDERED: EPINEPHRINE 0.1MG/ML (1:10,000) 10ML SYR ONE (09:15)
[2023-01-09] MEDS ORDERED: CALCIUM CHLORIDE 1GM/10ML SYR IV ONE (09:15)
[2023-01-09] MEDS ORDERED: SODIUM BICARBONATE 8.4% 1 MEQ/ML 50ML SYR IV ONE (09:15)
[2023-01-09] MEDS ORDERED: DEXTROSE 50% WATER 50ML SYRINGE IV ONE (09:15)
[2023-01-09] MEDS ORDERED: INSULIN REGULAR (HUMULIN R) 300UNITS/3ML VIAL IV NR (11:00)
[2023-01-09] MEDS ORDERED: DEXTROSE 50% WATER 50ML SYRINGE IV NR (11:00)
[2023-01-09] MEDS ORDERED: CALCIUM GLUCONATE 100MG/ML 10ML VIAL IV NR (12:00)
[2023-01-09] MEDS ORDERED: MENTHOL/LANOLIN/CALAMINE/ZN OX OINT 71GM TOP SCH (13:00)
[2023-01-09 13:59] LABS: HEPATITIS B SURFACE ANTIGEN NEGATIVE
== END 2023-01-09 11:48 | DRG 871 ==
LOC: CVICU 16:40
PROVIDERS: ADMIT Internal Medicine; ATTEND Internal Medicine
PROC: 5A09357 Assistance with Respiratory Ventilation, Less than 24 Consecutive Hours, Continuous Positive Airway Pressure (ICD-10-PCS; 2023-01-08)
PROC: 5A12012 Performance of Cardiac Output, Single, Manual (ICD-10-PCS; principal; 2023-01-09)
PROC: 5A1D70Z Performance of Urinary Filtration, Intermittent, Less than 6 Hours Per Day (ICD-10-PCS; 2023-01-09)
DX: A41.9 Sepsis, unspecified organism (principal); I21.4 Non-ST elevation (NSTEMI) myocardial infarction; J96.21 Acute and chronic respiratory failure with hypoxia; N17.0 Acute kidney failure with tubular necrosis; N18.6 End stage renal disease; I50.43 Acute on chronic combined systolic (congestive) and diastolic (congestive) heart failure; I47.1 Supraventricular tachycardia; E87.20 Acidosis, unspecified; I13.2 Hypertensive heart and chronic kidney disease with heart failure and with stage 5 chronic kidney disease, or end stage renal disease; R65.20 Severe sepsis without septic shock; E87.5 Hyperkalemia; E83.51 Hypocalcemia; I16.0 Hypertensive urgency; I25.10 Atherosclerotic heart disease of native coronary artery without angina pectoris; Z99.2 Dependence on renal dialysis; Z88.0 Allergy status to penicillin; Z86.16 Personal history of COVID-19; Z87.01 Personal history of pneumonia (recurrent); Z90.5 Acquired absence of kidney; D63.8 Anemia in other chronic diseases classified elsewhere; I46.9 Cardiac arrest, cause unspecified
CPT/HCPCS: 36415; 36600; 71045; 80048; 81003; 82375; 82805; 82962; 83036; 83605; 84145; 85025; 86705; 86709; 86803; 87340; 90935; 92950; 93306; 94660; J0360; J0610; J1940; J2920; J3490; A4315